=== PATIENT | male | born 1995 | race African-American/Black ===

== ENCOUNTER 2017-06-10 09:15 | Emergency (ER) | payer OTHER ==
[2017-06-10 09:18] VITALS: BP 106/61; PULSE 86; RESP 20; TEMP 99.2; O2SAT 97
[2017-06-10] MEDS ORDERED: AZIT500T2 PO (09:25)
[2017-06-10] MEDS ORDERED: AMOX500C PO (09:25)
[2017-06-10] MEDS ORDERED: NAPR220C22 (09:26)
--- NOTE | 2017-06-10 09:42 | PD ---
HPI Chief Complaint: ENT Complaint Time Seen by Provider: 09:22 Travel History International Travel<30 days: No Contact w/Intl Traveler<30days: No Traveled to known affect area: No History of Present Illness HPI 22-year-old male presents to the emergency department for evaluation of sore throat. Patient states that approximately 2 weeks ago, he started to feel sick and fatigued. He states that those symptoms resolved, but he does have a severe sore throat. He has went to urgent care several times this week. He is currently on amoxicillin and azithromycin. He also states he received injections 2 times a day Wednesday, Wednesday, Wednesday. He states that he believes these were antibiotic and steroid injections. Patient is unsure of the names of the injections. He states that he also saw a physician at an urgent care yesterday and was told just to continue his medications. However, he states that the pain in his throat is not resolving. Patient has no chronic medical problems and takes no prescribed medications. Current pain is 7 /10, aching, without radiation. Patient is currently on amoxicillin, azithromycin, Magic mouthwash. No exacerbating or alleviating factors. He states that he is not currently on any oral steroids. Moderate severity. Patient states he has had strep swabs that were negative. [facility]LY [facility] Social History Alcohol Use: No Tobacco Use: No Substance Use: No Allergies-Medications (Allergen,Severity, Reaction): Coded Allergies: No Known Allergies (Unverified , 06/10/17) Reported Meds & Prescriptions Reported Meds & Active Scripts Active Reported Aleve (Naproxen Sodium) 220 Mg Capsule 1 Amoxicillin 500 Mg Cap 500 Mg PO TID Azithromycin 500 Mg Tab 500 Mg PO DAILY Review of Systems Except as stated in HPI: all other systems reviewed are Neg Physical Exam Narrative GENERAL: Well-nourished, well-developed male patient, afebrile SKIN: Focused skin assessment warm/dry. HEAD: Normocephalic. Atraumatic. ENT: Mucosa pink and moist. Bilateral tonsils 2+, erythematous, with exudate. No uvular edema. No uvular, palatal, or tonsillar deviation. Airway patent. Nasal turbinates appear normal without nasal blood, purulent drainage or septal hematoma. Bilateral tympanic membranes clear without erythema or perforation. EYES: No scleral icterus. No injection or drainage. NECK: Supple, trachea midline. No JVD or lymphadenopathy. CARDIOVASCULAR: Regular rate and rhythm without murmurs, gallops, or rubs. RESPIRATORY: Breath sounds equal bilaterally. No accessory muscle use. Lung sounds are clear to auscultation. GASTROINTESTINAL: Abdomen soft, non-tender, nondistended. MUSCULOSKELETAL: No cyanosis, or edema. BACK: Nontender without obvious deformity. No CVA tenderness. Data Data Last Documented VS Vital Signs Date Time Temp Pulse Resp B/P (MAP) Pulse Ox O2 Delivery O2 Flow Rate FiO2 06/10/17 09:18 99.2 86 20 106/61 (76) 97 Orders Orders Throat Culture (06/10/17 09:33) Iv Access Insert/Monitor (06/10/17 09:33) Complete Blood Count With Diff (06/10/17 09:33) Basic Metabolic Panel (Bmp) (06/10/17 09:33) Monoscreen (06/10/17 09:33) Sodium Chlor 0.9% 1000 Ml Inj (Ns 1000 M (06/10/17 09:45) Ct Soft Tiss Neck W Iv Cont (06/10/17 ) Dexamethasone Inj (Decadron Inj) (06/10/17 09:45) Iohexol 350 Inj (Omnipaque 350 Inj) (06/10/17 11:09) Labs Laboratory Tests Test 06/10/17 09:50 White Blood Count 10.9 TH/MM3 Red Blood Count 4.46 MIL/MM3 Hemoglobin 14.0 GM/DL Hematocrit 39.1 % Mean Corpuscular Volume 87.7 FL Mean Corpuscular Hemoglobin 31.3 PG Mean Corpuscular Hemoglobin Concent 35.7 % Red Cell Distribution Width 13.6 % Platelet Count 350 TH/MM3 Mean Platelet Volume 7.7 FL Neutrophils (%) (Auto) 71.4 % Lymphocytes (%) (Auto) 15.0 % Monocytes (%) (Auto) 12.9 % Eosinophils (%) (Auto) 0.3 % Basophils (%) (Auto) 0.4 % Neutrophils # (Auto) 7.8 TH/MM3 Lymphocytes # (Auto) 1.6 TH/MM3 Monocytes # (Auto) 1.4 TH/MM3 Eosinophils # (Auto) 0.0 TH/MM3 Basophils # (Auto) 0.0 TH/MM3 CBC Comment DIFF FINAL Differential Comment Blood Urea Nitrogen 17 MG/DL Creatinine 1.16 MG/DL Random Glucose 92 MG/DL Calcium Level 9.1 MG/DL Sodium Level 137 MEQ/L Potassium Level 3.8 MEQ/L Chloride Level 102 MEQ/L Carbon Dioxide Level 29.1 MEQ/L Anion Gap 6 MEQ/L Estimat Glomerular Filtration Rate 94 ML/MIN MDM Medical Decision Making Medical Screen Exam Complete: Yes Emergency Medical Condition: Yes Medical Record Reviewed: Yes Interpretation(s) CT soft tissue neck - CONCLUSION: Significant soft tissue enlargement in the nasopharynx and lateral oral pharyngeal marroquin without focal fluid collections. Differential Diagnosis Strep pharyngitis versus mononucleosis versus peritonsillar abscess Narrative Course 22-year-old male presents to the emergency department for unresolving sore throat despite being on multiple antibiotics and steroid injections. On exam, his tonsils are 2+ with exudates. He is managing his secretions, but is also spitting into a water bottle. IV access is obtained. CBC, BMP, mononucleosis are ordered and pending. Patient is given normal saline 1 L IV bolus, dexamethasone [address] soft tissue the neck with IV contrast is ordered and pending. Throat culture is taken. CBC shows no acute abnormality. BMP is unremarkable. Mononucleosis is pending. CT soft tissue neck shows significant soft tissue enlargement in the nasopharynx and lateral oral pharyngeal marroquin without focal fluid collections. I discussed the results of my attending physician, Dr. Wild. She agrees with plan and disposition. I discussed possible risk factors for HIV, but the patient denies any risk factors. He will be discharged a prescription for a Medrol Dosepak. He is to continue antibiotics until gone. He is to follow up with his primary care physician or return here for any acute worsening of symptoms. The patient was discharged in stable condition with instructions, including return instructions and follow up instructions. Diagnosis Primary Impression: Tonsillitis Referrals: Primary Care Physician call for appointment Patient Instructions: General Instructions, Tonsillitis (ED) Additional Instructions: Continue antibiotics as directed until gone. Take Medrol Dosepak as directed. Start this tomorrow. Follow-up with a primary care physician. Return to the emergency department for any acute worsening of symptoms. Med/Other Pt SpecificInfo: Prescription(s) given Scripts Methylprednisolone Dosepak (Medrol Dosepak) 4 Mg Dspk 4 MG PO DIRECTED, #1 DSPK 0 Refills Per Pharmacist direction Prov: Anum Braden 06/10/17 Disposition: 01 DISCHARGE HOME Condition: Stable Anum Braden June 10, 2017 09:42
[2017-06-10] MEDS ORDERED: SODIUM CHLOR 0.9% 1000 ML INJ 1,000 ML IV ONE (09:45)
[2017-06-10] MEDS ORDERED: DEXAMETHASONE SOD PHOS 4 MG/ML VIAL IV PUSH ONE (09:45)
[2017-06-10 10:12] LABS: AUTOMATED NEUTROPHIL # 7.8 TH/MM3 (1.8-7.7); BASOPHIL % 0.4 % (0.0-2.0); EOSINOPHIL % 0.3 % (0.0-4.0); HEMATOCRIT 39.1 % (39.0-51.0); LYMPHOCYTE # 1.6 TH/MM3 (1.0-4.8); MEAN CELL VOLUME 87.7 FL (80.0-100.0); MEAN CORPUSCULAR HEMOGLOBIN 31.3 PG (27.0-34.0); MEAN CORPUSCULAR HGB CONC 35.7 % (32.0-36.0); MEAN PLATELET VOLUME 7.7 FL (7.0-11.0); MONO % 12.9 % (0.0-8.0); MONOCYTE # 1.4 TH/MM3 (0-0.9); NEUT % 71.4 % (16.0-70.0); PLATELET COUNT 350 TH/MM3 (150-450); RED BLOOD COUNT 4.46 MIL/MM3 (4.50-5.90); RED CELL DISTRIBUTION WIDTH 13.6 % (11.6-17.2); WHITE BLOOD COUNT 10.9 TH/MM3 (4.0-11.0)
[2017-06-10 10:30] LABS: BICARBONATE 29.1 MEQ/L (21.0-32.0); CALCIUM 9.1 MG/DL (8.5-10.1); CREATININE 1.16 MG/DL (0.60-1.30)
[2017-06-10] MEDS ORDERED: IOHEXOL 350 MG/ML 10 ML VIAL (for RAD DIAG) IVCONTRAST ONE (11:09)
--- NOTE | 2017-06-10 11:48 | RADRPT ---
EXAM DATE/TIME: 06/10/2017 10:56 [facility] COMPARISON: No previous studies available for comparison. INDICATIONS : Sore throat, evaluate for abscess IV CONTRAST: 95 cc Omnipaque 350 (iohexol) IV RADIATION DOSE: 14.40 CTDIvol (mGy) MEDICAL HISTORY : None SURGICAL HISTORY : None. ENCOUNTER: Initial ACUITY: 2 weeks PAIN SCALE: 7/10 LOCATION: neck TECHNIQUE: Volumetric scanning of the neck was performed. Using automated exposure control and adjustment of th e mA and/or kV according to patient size, radiation dose was kept as low as reasonably achievable to obtain optimal diagnostic quality images. DICOM format image data is available electronically for r eview and comparison. FINDINGS: Marked thickening of the nasopharyngeal soft tissues measuring up to 3 cm and extending into the post erior left nasal cavity. There is symmetric prominent enlargement of the lateral pharyngeal soft tis sues measuring 3.1 x 2.3 cm and coming in contact at the midline at the level of the oropharynx. Pre vertebral soft tissues are normal in thickness. The salivary glands are symmetric and normal in appe arance. No mucosal thickening seen of the paranasal sinuses. No lateral neck adenopathy. The thyro id is normal in thickness. CONCLUSION: Significant soft tissue enlargement in the nasopharynx and lateral oral pharyngeal marroquin without foca l fluid collections. Reno Khan MD on June 10, 2017 at 11:43 Board Certified Radiologist. This report was verified electronically.
[2017-06-10] MEDS ORDERED: MEDR4PAK PO (12:15)
[2017-06-10 21:43] LABS: MONOSCREEN NEG (NEG)
== END 2017-06-10 12:23 | disposition home or self-care (01) ==
LOC: NEPK 09:15
DX: J03.90 Acute tonsillitis, unspecified (principal)
CPT/HCPCS: 70491; 80048; 85025; 86308; 87070; 96361; 96374; 99284; J1100; J7030; Q9967